=== PATIENT | female | born 1970 | race American Indian/Alaskan Native ===

== ENCOUNTER 2019-11-25 19:03 | Emergency (ER) | payer SELFPAY ==
[2019-11-25 21:53] LABS: Bacteria,Urine 1+ /HPF (Negative); Bilirubin,Urine NEG (Negative); Blood,Urine NEG (Negative); Color,Urine Yellow (Yellow); Mucus,Urine FEW /HPF; Protein,Urine <15 mg/dL mg/dL (Negative); Urobilinogen,Urine < 2.0 mg/dL (<2.0)
[2019-11-25 21:58] LABS: Basophils # (Auto) 0.1 K/mm3 (0.0-0.1); Basophils % (Auto) 0.6 % (0.0-1.8); Eosinophils # (Auto) 0.2 K/mm3 (0.0-0.4); Eosinophils % (Auto) 1.8 % (0.0-4.3); Hematocrit 37.8 % (30.3-42.9); Hemoglobin 12.5 gm/dl (10.1-14.3); Lymphocytes # (Auto) 2.2 K/mm3 (1.2-5.4); Lymphocytes % (Auto) 23.4 % (13.4-35.0); Mean Corpuscular HGB Conc 33 % (30-34); Mean Corpuscular Volume 76 fl (79-97); Monocytes # (Auto) 0.7 K/mm3 (0.0-0.8); Monocytes % (Auto) 7.7 % (0.0-7.3); Platelet Count 386 K/mm3 (140-440); Red Blood Count 4.95 M/mm3 (3.65-5.03); Red Cell Distribution Width 14.7 % (13.2-15.2)
[2019-11-25 22:23] LABS: Alanine Aminotransferase 14 units/L (7-56); Albumin 4.7 g/dL (3.9-5); BUN/Creatinine Ratio 13; Blood Urea Nitrogen 13 mg/dL (7-17); Calcium 10.7 mg/dL (8.4-10.2); Hemolysis Index 12
--- NOTE | 2019-11-26 02:08 | Emergency Department Report ---
ED Abdominal Pain HPI - General Chief Complaint: Dizziness Stated Complaint: FAINT/DIZZY PUI?: No Time Seen by Provider: 11/26/19 01:49 Source: patient, EMS Mode of arrival: Stretcher Limitations: No Limitations - History of Present Illness Initial Comments: Mrs. Daniel is a healthy 48-year-old female without significant past medical history who presents with abdominal cramping, nausea feeling faint. She feels muscle spasms in her abdomen. She has had these symptoms on previous occasion. She does not have a primary care physician. Consequently she has not received a diagnosis. Severe abdominal cramps improved with potassium tablets. She has been under stress. 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 MD Complaint: abdominal pain -: Sudden, This afternoon Location: periumbilical Radiation: none Severity: moderate Quality: cramping Consistency: now resolved Improves With: other (Potassium supplementation) Worsens With: nothing Associated Symptoms: nausea - Related Data Previous Rx's Medication Instructions Recorded Last Taken Type Tobramycin 0.3% [Tobrex] 2 drop OS Q4HR #1 bottle 12/29/14 Unknown Rx Famotidine [Pepcid] 20 mg PO BID 30 Days #60 tablet 11/26/19 Unknown Rx Allergies Allergy/AdvReac Type Severity Reaction Status Date / Time seafood Allergy Swelling Uncoded 12/28/14 23:51 ED Review of Systems ROS: Stated complaint: FAINT/DIZZY Other details as noted in HPI Comment: All other systems reviewed and negative Constitutional: denies: fever, malaise Respiratory: denies: cough, shortness of breath Cardiovascular: denies: chest pain, palpitations Gastrointestinal: abdominal pain, nausea. denies: diarrhea, constipation ED Past Medical Hx - Past Medical History Previous Medical History?: No - Surgical History Past Surgical History?: Yes Additional Surgical History: HYSTERECTOMY - Social History Smoking Status: Never Smoker Substance Use Type: None - Medications Home Medications: Home Medications Medication Instructions Recorded Confirmed Last Taken Type Tobramycin 0.3% [Tobrex] 2 drop OS Q4HR #1 bottle 12/29/14 Unknown Rx Famotidine [Pepcid] 20 mg PO BID 30 Days #60 tablet 11/26/19 Unknown Rx ED Physical Exam - General Limitations: No Limitations General appearance: alert, in no apparent distress - Head Head exam: Present: atraumatic, normocephalic - Eye Eye exam: Present: normal appearance - ENT ENT exam: Present: mucous membranes moist - Neck Neck exam: Present: normal inspection, full ROM - Respiratory Respiratory exam: Present: normal lung sounds bilaterally. Absent: respiratory distress, wheezes, rales, stridor - Cardiovascular Cardiovascular Exam: Present: regular rate, normal rhythm, normal heart sounds. Absent: systolic murmur, diastolic murmur, rubs, gallop - GI/Abdominal GI/Abdominal exam: Present: soft, normal bowel sounds. Absent: distended, tenderness, guarding, rebound - Extremities Exam Extremities exam: Present: normal inspection - Neurological Exam Neurological exam: Present: alert, oriented X3 - Psychiatric Psychiatric exam: Present: normal affect, normal mood - Skin Skin exam: Present: warm, dry, intact, normal color. Absent: rash ED Course Vital Signs 11/25/19 11/25/19 20:02 21:27 Temperature 97.9 F 97.9 F Pulse Rate 90 90 Respiratory 18 18 Rate Blood Pressure 147/91 147/91 O2 Sat by Pulse 100 100 Oximetry ED Medical Decision Making - Lab Data Result diagrams: 11/25/19 21:40 11/25/19 21:40 Laboratory Results - last 24 hr 11/25/19 11/25/19 11/25/19 21:40 21:40 Unknown WBC 9.2 RBC 4.95 Hgb 12.5 Hct 37.8 MCV 76 L MCH 25 L MCHC 33 RDW 14.7 Plt Count 386 Lymph % (Auto) 23.4 Bowman % (Auto) 7.7 H Eos % (Auto) 1.8 Baso % (Auto) 0.6 Lymph # 2.2 Bowman # 0.7 Eos # 0.2 Baso # 0.1 Seg Neutrophils % 66.5 Seg Neutrophils # 6.1 Sodium 139 Potassium 4.9 Chloride 100.9 Carbon Dioxide 25 Anion Gap 18 BUN 13 Creatinine 1.0 Estimated GFR > 60 BUN/Creatinine Ratio 13 Glucose 99 Calcium 10.7 H Total Bilirubin 0.20 AST 18 ALT 14 Alkaline Phosphatase 63 Total Protein 8.2 Albumin 4.7 Albumin/Globulin Ratio 1.3 Lipase 17 Urine Color Yellow Urine Turbidity Slightly-cloudy Urine pH 7.0 Ur Specific Mcgrady 1.013 Urine Protein <15 mg/dl Urine Glucose (UA) Neg Urine Ketones Neg Urine Blood Neg Urine Nitrite Neg Urine Bilirubin Neg Urine Urobilinogen < 2.0 Ur Leukocyte Esterase Neg Urine WBC (Auto) 4.0 Urine RBC (Auto) 3.0 U Epithel Cells (Auto) 11.0 Urine Bacteria (Auto) 1+ Urine Mucus Few - Medical Decision Making This is a healthy 48-year-old female who presents with intermittent abdominal cramping which improves with potassium supplementation. Differential diagnosis includes IBS, peptic ulcer disease. No chest pain to indicate ACS. No leukocytosis fever or abdominal tenderness to suggest acute inflammatory process. She is currently symptom-free. I have prescribed famotidine twice daily. I strongly recommended outpatient evaluation by general physician. Critical care attestation.: If time is entered above; I have spent that time in minutes in the direct care of this critically ill patient, excluding procedure time. ED Disposition Clinical Impression: Abdominal pain Disposition: [id number] TO HOME OR SELFCARE Is pt being admited?: No Does the pt Need Aspirin: No Condition: Stable Instructions: Irritable Bowel Syndrome (ED) Prescriptions: Famotidine [Pepcid] 20 mg PO BID 30 Days #60 tablet Referrals: CASIE HAILE MD [Staff Physician] - 3-5 Days
[2019-11-26 02:46] VITALS: BP 124/66
== END 2019-11-26 02:48 | disposition home or self-care (01) ==
LOC: ED 19:03
DX: R10.33 Periumbilical pain (principal); R11.0 Nausea
CPT/HCPCS: 36415; 80053; 81001; 83690; 85025